=== PATIENT | male | born 1985 | race Caucasian/White ===

== ENCOUNTER 2025-03-14 10:19 | Emergency (ER) | payer SELFPAY ==
[~2025-03-14] VITALS: Ht 175.3 cm; Wt 95.0 kg
[2025-03-14 10:24] VITALS: O2SAT 98
[2025-03-14 11:01] VITALS: BP 170/103; PULSE 85; RESP 18; TEMP 36.9; O2SAT 98
[2025-03-14 12:05] LABS: BASOPHILS % 0.5 % (0.0-2.0); EOSINOPHILS % 0.5 % (0.0-5.0); HEMATOCRIT. 41.3 % (42.0-52.0); HEMOGLOBIN. 13.9 g/dL (14.0-18.0); LYMPHOCYTES % 11.8 % (20.0-50.0); MEAN CORPUSCULAR HGB CONC 33.6 g/dL (31.0-37.0); MEAN CORPUSCULAR VOLUME 86.2 fL (80.0-94.0); MEAN PLATELET VOLUME 9.4 fl (7.4-10.4); MONOCYTES % 5.7 % (2.0-8.0); NEUTROPHILS % 81.5 % (40.0-76.0); PLATELET 249 x1000/uL (130-400); RED CELL DISTRIBUTION WIDTH 12.9 % (11.6-14.6); WHITE BLOOD COUNT 10.8 x1000/uL (4.5-11.0)
[2025-03-14 12:17] LABS: CHLORIDE 105 mEq/L (98-107); POTASSIUM 4.4 mEq/L (3.5-5.1); SODIUM 139 mEq/L (136-145)
[2025-03-14 12:19] LABS: CALCIUM 10.2 mg/dL (8.7-10.4); CARBON DIOXIDE 30 mEq/L (21-32)
[2025-03-14 12:23] LABS: GLUCOSE 135 mg/dL (70-105)
[2025-03-14 12:24] LABS: CREATININE 0.7 mg/dL (0.6-1.3); UREA NITROGEN BLOOD 12 mg/dL (9-23)
[2025-03-14 12:27] LABS: TROPONIN I HIGH SENSITIVITY < 4 ng/L (3.0-53)
== END 2025-03-14 18:01 ==
LOC: ER 10:40 → EDBEDREQ 10:54 → CANBEDREQ 12:53 → ER 18:01
DX: R07.89 Other chest pain (principal)
CPT/HCPCS: 36415; 71045; 80048; 83880; 84484; 85025; 93005; 99285